=== PATIENT | male | born 1930 | race Caucasian/White ===

== ENCOUNTER 2016-12-30 19:27 | Emergency (ER) | payer OTHER, MEDICAID ==
[2016-12-30 22:24] LABS: BASOPHIL % 0.4 % (0-2); PLATELET COUNT 265 x10^3mcL (130-400)
[2016-12-30 22:39] LABS: RED CELL DISTRIBUTION WIDTH 16.4 % (11.5-14.5)
[2016-12-30 22:45] LABS: ALBUMIN 3.4 g/dL (3.4-5.0); ALKALINE PHOSPHATASE 125 U/L (46-116); ALT/SGPT 24 U/L (16-63); AST/SGOT 24 U/L (15-37); BILIRUBIN TOTAL 0.8 mg/dL (0.20-1.00); CALCIUM 8.6 mg/dL (8.5-10.1); CARBON DIOXIDE 29.3 mmol/L (21-32); CHLORIDE SERUM 98 mmol/L (98-107); GLUCOSE SERUM 144 mg/dL (74-106); POTASSIUM SERUM 3.9 mmol/L (3.5-5.1); SODIUM SERUM 134 mmol/L (136-145); TOTAL PROTEIN, SERUM 7.7 g/dL (6.4-8.2)
[2016-12-30 22:52] LABS: CREATININE SERUM 6.8 mg/dL (0.7-1.3)
[2016-12-30 23:05] VITALS: BP 212/102
== END 2016-12-30 23:06 | disposition short-term general hospital (02) ==
LOC: ED 19:27 → EDBD 19:27 → ED 23:06
PROVIDERS: Emergency Medicine
DX: S06.5X0A Traumatic subdural hemorrhage without loss of consciousness, initial encounter (principal); S01.01XA Laceration without foreign body of scalp, initial encounter; W19.XXXA Unspecified fall, initial encounter; Y93.89 Activity, other specified; Y99.8 Other external cause status; Y92.89 Other specified places as the place of occurrence of the external cause
CPT/HCPCS: 36415; 90715